=== PATIENT | male | born 1935 | race Caucasian/White ===

== ENCOUNTER 2017-02-22 19:01 | Inpatient (IN) | payer MEDICARE ==
[~2017-02-22] VITALS: Ht 154.9 cm; Wt 67.1 kg
[~2017-02-22 19:01] MED LIST: LEVE500T20 PO
[2017-02-22] MEDS ORDERED: DONE5TAB34 PO (19:11)
[2017-02-22] MEDS ORDERED: METO25TA6 PO (19:11)
[2017-02-22] MEDS ORDERED: CITA10TA9 PO (19:11)
[2017-02-22] MEDS ORDERED: FENO145T20 PO (19:11)
[2017-02-22] MEDS ORDERED: ASPI-991 PO (19:11)
[2017-02-22] MEDS ORDERED: FERR-58 PO (19:11)
[2017-02-22] MEDS ORDERED: LEVE250T2 PO (19:11)
[2017-02-22] MEDS ORDERED: PANT40TA4 PO (19:11)
[2017-02-22] MEDS ORDERED: LISI30TA4 PO (19:11)
[2017-02-22] MEDS ORDERED: ACET-868 PO (19:11)
[2017-02-22] MEDS ORDERED: EZET10TA PO (19:11)
[2017-02-22] MEDS ORDERED: LORA1TAB PO (19:11)
[2017-02-22 19:58] LABS: CALCIUM, SERUM 9.5 mg/dL (8.5-10.1); CARBON DIOXIDE 33 mmol/L (21-32); CHLORIDE 105 mmol/L (98-107); CREATININE 1.4 mg/dL (0.6-1.3); GLUCOSE 111 mg/dL (74-106); POTASSIUM 5.1 mmol/L (3.5-5.1); SODIUM SERUM 143 mmol/L (136-145); UREA NITROGEN, BLOOD 38 mg/dL (7-18)
[2017-02-22 20:03] LABS: ALANINE AMINOTRANSFERASE 22 U/L (12-78); ALBUMIN 3.8 g/dL (3.4-5.0); ALKALINE PHOSPHATASE 54 U/L (46-116); ASPARTATE AMINOTRANSFERASE 23 U/L (15-37); BILIRUBIN,DIRECT 0.1 mg/dL (0.0-0.2); BILIRUBIN,TOTAL 0.4 mg/dL (0.2-1.0); TOTAL PROTEIN, SERUM 7.5 g/dL (6.4-8.2)
[2017-02-22 20:05] LABS: APPEARANCE,URINE CLEAR (CLEAR); BILIRUBIN,URINE NEGATIVE (NEGATIVE); BLOOD, URINE NEGATIVE Ery/uL (NEGATIVE); COLOR,URINE YELLOW (YELLOW); KETONES,URINE NEGATIVE (NEGATIVE); LEUKOCYTE ESTERASE ,URINE NEGATIVE (NEGATIVE); NITRITE, URINE NEGATIVE (NEGATIVE); PROTEIN,URINE NEGATIVE (NEGATIVE); UGLUCOSE NEGATIVE (NEGATIVE); UROBILINOGEN,URINE 0.2 EU/dL (0.2)
[2017-02-22 20:09] LABS: BASOPHILS # (AUTO) 0.1 /CMM (0.0-0.2); EOSINOPHILS # (AUTO) 0.2 /CMM (0.0-0.7); EOSINOPHILS % (AUTO) 2.1 % (0.0-6.0); HEMATOCRIT 35 % (39-51); HEMOGLOBIN 11.8 g/dL (13.5-17.5); LYMPHOCYTES # (AUTO) 1.3 /CMM (0.8-4.8); LYMPHOCYTES % (AUTO) 11.8 % (20.0-44.0); MEAN CORPUSCULAR HEMOGLOBIN 32 PG (26.0-33.0); MEAN CORPUSCULAR HGB CONC 34 g/dl (31.0-36.0); MEAN CORPUSCULAR VOLUME 94 fL (80-96); MONOCYTES # (AUTO) 0.6 /CMM (0.1-1.30); MONOCYTES % (AUTO) 5.7 % (2.0-12.0); NEUTROPHILS # (AUTO) 8.8 /CMM (1.8-8.9); NEUTROPHILS % (AUTO) 79.4 % (43.0-81.0); PLATELET COUNT (AUTO) 289 /CMM (150-450); RDW COEFFICIENT OF VARIATION 14.2 (11.5-15.0); RED BLOOD CELL COUNT(AUTO) 3.72 MIL/uL (4.5-6.0); WHITE BLOOD COUNT (AUTO) 11.1 K/uL (4.3-11.0)
[2017-02-22 20:11] LABS: ACETAMINOPHEN 0 ug/ml (10-30); ALCOHOL, BLOOD < 3 mg/dL (0-0); SALICYLATE 1.2 mg/dL (2.8-20.0)
[2017-02-22] MEDS ORDERED: ACETAMINOPHEN 325 MG TABLET PO PRN ×2 (21:30)
[2017-02-22] MEDS ORDERED: LORAZEPAM 0.5 MG TABLET PO PRN (21:30)
[2017-02-22] MEDS ORDERED: MAG HYDROX/AL HYDROX/SIMETH 30 ML UDC PO PRN (21:30)
[2017-02-22] MEDS ORDERED: MAGNESIUM HYDROXIDE 30 ML UDC PO PRN (21:30)
[2017-02-22 22:00] VITALS: BP 112/70
[2017-02-23] MEDS ORDERED: Z GUARD REMEDY 2 OZ OINT TP PRN (05:00)
[2017-02-23 06:55] LABS: BASOPHILS # (AUTO) 0.1 /CMM (0.0-0.2); BASOPHILS % (AUTO) 1.1 % (0.0-2.0); EOSINOPHILS # (AUTO) 0.2 /CMM (0.0-0.7); EOSINOPHILS % (AUTO) 2.6 % (0.0-6.0); HEMATOCRIT 37 % (39-51); HEMOGLOBIN 12.3 g/dL (13.5-17.5); LYMPHOCYTES # (AUTO) 1.8 /CMM (0.8-4.8); LYMPHOCYTES % (AUTO) 19.3 % (20.0-44.0); MEAN CORPUSCULAR HEMOGLOBIN 31 PG (26.0-33.0); MEAN CORPUSCULAR HGB CONC 33 g/dl (31.0-36.0); MEAN CORPUSCULAR VOLUME 94 fL (80-96); MONOCYTES # (AUTO) 0.8 /CMM (0.1-1.30); MONOCYTES % (AUTO) 8.3 % (2.0-12.0); NEUTROPHILS # (AUTO) 6.5 /CMM (1.8-8.9); NEUTROPHILS % (AUTO) 68.7 % (43.0-81.0); PLATELET COUNT (AUTO) 272 /CMM (150-450); RDW COEFFICIENT OF VARIATION 14.4 (11.5-15.0); RED BLOOD CELL COUNT(AUTO) 3.91 MIL/uL (4.5-6.0); WHITE BLOOD COUNT (AUTO) 9.4 K/uL (4.3-11.0)
[2017-02-23 07:49] LABS: CHOLESTEROL 144 mg/dL (<200); HDL CHOLESTEROL 34 mg/dL (40-60); LDL 75 mg/dL (0-99); TRIGLYCERIDES 129 mg/dL (30-150)
[2017-02-23 08:17] LABS: ALANINE AMINOTRANSFERASE 24 U/L (12-78); ALKALINE PHOSPHATASE 51 U/L (46-116); ASPARTATE AMINOTRANSFERASE 27 U/L (15-37); BILIRUBIN,TOTAL 0.5 mg/dL (0.2-1.0); CALCIUM, SERUM 9.7 mg/dL (8.5-10.1); CARBON DIOXIDE 32 mmol/L (21-32); CHLORIDE 104 mmol/L (98-107); CREATININE 1.2 mg/dL (0.6-1.3); GLUCOSE 78 mg/dL (74-106); POTASSIUM 4.6 mmol/L (3.5-5.1); SODIUM SERUM 144 mmol/L (136-145); TOTAL PROTEIN, SERUM 7.7 g/dL (6.4-8.2); UREA NITROGEN, BLOOD 38 mg/dL (7-18)
[2017-02-23] MEDS: FENOFIBRATE NANOCRYS (145 MG) 145 MG TABLET PO SCH (08:53)
[2017-02-23] MEDS: METOPROLOL TARTRATE 25 MG TABLET PO SCH ×2 (08:54→16:50)
[2017-02-23] MEDS: PANTOPRAZOLE 40 MG TABLET.DR PO SCH (08:54)
[2017-02-23] MEDS: FERROUS SULFATE (325 MG) 325 MG/TAB TABLET PO SCH ×2 (08:54→16:49)
[2017-02-23] MEDS: ASPIRIN EC 81 MG TABLET.DR PO SCH (08:54)
[2017-02-23] MEDS: LISINOPRIL (10MG) 10 MG TABLET PO SCH (08:57)
[2017-02-23] MEDS: EZETIMIBE 10 MG TABLET PO SCH (08:59)
[2017-02-23 10:48] VITALS: BP 129/68
[2017-02-23] MEDS ORDERED: QUETIAPINE FUMARATE 25 MG TABLET PO PRN (13:00)
[2017-02-23] MEDS: SERTRALINE HCL 25 MG TABLET PO SCH (15:19)
[2017-02-23] MEDS: DIVALPROEX SODIUM 125 MG CAP.SPRINK PO SCH ×2 (15:19→21:30)
[2017-02-23 16:16] VITALS: BP 132/70
[2017-02-23 16:24] VITALS: BP 132/70
[2017-02-23] MEDS: LEVETIRACETAM (250 MG) 250 MG TABLET PO SCH (16:49)
[2017-02-23 20:00] VITALS: BP 151/77
[2017-02-23] MEDS: DONEPEZIL 5 MG TABLET PO SCH (21:30)
[2017-02-24 08:00] VITALS: BP 126/78
[2017-02-24] MEDS: ASPIRIN EC 81 MG TABLET.DR PO SCH (08:13)
[2017-02-24] MEDS: DIVALPROEX SODIUM 125 MG CAP.SPRINK PO SCH ×2 (08:13→21:01)
[2017-02-24] MEDS: PANTOPRAZOLE 40 MG TABLET.DR PO SCH (08:13)
[2017-02-24] MEDS: LEVETIRACETAM (250 MG) 250 MG TABLET PO SCH ×2 (08:14→17:06)
[2017-02-24] MEDS: FERROUS SULFATE (325 MG) 325 MG/TAB TABLET PO SCH ×2 (08:14→17:06)
[2017-02-24] MEDS: METOPROLOL TARTRATE 25 MG TABLET PO SCH ×2 (08:15→17:07)
[2017-02-24] MEDS: SERTRALINE HCL 25 MG TABLET PO SCH (08:15)
[2017-02-24] MEDS: FENOFIBRATE NANOCRYS (145 MG) 145 MG TABLET PO SCH (08:15)
[2017-02-24] MEDS: LISINOPRIL (10MG) 10 MG TABLET PO SCH (08:15)
[2017-02-24] MEDS: EZETIMIBE 10 MG TABLET PO SCH (08:16)
[2017-02-24 16:00] VITALS: BP 148/53
[2017-02-24] MEDS ORDERED: PERMETHRIN 5% CRM 60 GM TUBE TP ONE (19:30)
[2017-02-24] MEDS: DONEPEZIL 5 MG TABLET PO SCH (21:01)
[2017-02-24 22:31] VITALS: BP 142/65
[2017-02-25] MEDS: PANTOPRAZOLE 40 MG TABLET.DR PO SCH (07:48)
[2017-02-25 08:00] VITALS: BP 133/65
[2017-02-25] MEDS: DIVALPROEX SODIUM 125 MG CAP.SPRINK PO SCH ×2 (08:42→21:53)
[2017-02-25] MEDS: SERTRALINE HCL 25 MG TABLET PO SCH (08:42)
[2017-02-25] MEDS: FENOFIBRATE NANOCRYS (145 MG) 145 MG TABLET PO SCH (08:42)
[2017-02-25] MEDS: LEVETIRACETAM (250 MG) 250 MG TABLET PO SCH ×2 (08:42→16:57)
[2017-02-25] MEDS: ASPIRIN EC 81 MG TABLET.DR PO SCH (08:42)
[2017-02-25] MEDS: FERROUS SULFATE (325 MG) 325 MG/TAB TABLET PO SCH ×2 (08:42→16:56)
[2017-02-25] MEDS: METOPROLOL TARTRATE 25 MG TABLET PO SCH ×2 (08:43→16:57)
[2017-02-25] MEDS: LISINOPRIL (10MG) 10 MG TABLET PO SCH (08:43)
[2017-02-25] MEDS: EZETIMIBE 10 MG TABLET PO SCH (08:44)
[2017-02-25 16:00] VITALS: BP 95/55
[2017-02-25 20:00] VITALS: BP 100/57
[2017-02-25 21:20] VITALS: BP 100/57
[2017-02-25] MEDS: DONEPEZIL 5 MG TABLET PO SCH (21:54)
[2017-02-25] MEDS: TEMAZEPAM 7.5 MG CAPSULE PO PRN (21:54)
[2017-02-26 08:06] VITALS: BP 100/55
[2017-02-26] MEDS: PANTOPRAZOLE 40 MG TABLET.DR PO SCH (08:14)
[2017-02-26] MEDS: METOPROLOL TARTRATE 25 MG TABLET PO SCH ×2 (09:00→17:30)
[2017-02-26] MEDS: LISINOPRIL (10MG) 10 MG TABLET PO SCH (09:00)
[2017-02-26] MEDS: FENOFIBRATE NANOCRYS (145 MG) 145 MG TABLET PO SCH (09:17)
[2017-02-26] MEDS: LEVETIRACETAM (250 MG) 250 MG TABLET PO SCH ×2 (09:18→17:31)
[2017-02-26] MEDS: SERTRALINE HCL 25 MG TABLET PO SCH (09:18)
[2017-02-26] MEDS: ASPIRIN EC 81 MG TABLET.DR PO SCH (09:18)
[2017-02-26] MEDS: DIVALPROEX SODIUM 125 MG CAP.SPRINK PO SCH ×2 (09:18→20:31)
[2017-02-26] MEDS: FERROUS SULFATE (325 MG) 325 MG/TAB TABLET PO SCH ×2 (09:18→17:30)
[2017-02-26] MEDS: EZETIMIBE 10 MG TABLET PO SCH (09:19)
[2017-02-26 16:12] VITALS: BP 118/57
[2017-02-26 20:12] VITALS: BP 89/66
[2017-02-26] MEDS: DONEPEZIL 5 MG TABLET PO SCH (21:28)
[2017-02-26 22:00] VITALS: BP 101/53
[2017-02-27 08:00] VITALS: BP 119/64
[2017-02-27] MEDS: FENOFIBRATE NANOCRYS (145 MG) 145 MG TABLET PO SCH (08:22)
[2017-02-27] MEDS: PANTOPRAZOLE 40 MG TABLET.DR PO SCH (08:22)
[2017-02-27] MEDS: ASPIRIN EC 81 MG TABLET.DR PO SCH (08:22)
[2017-02-27] MEDS: FERROUS SULFATE (325 MG) 325 MG/TAB TABLET PO SCH ×2 (08:22→16:19)
[2017-02-27] MEDS: METOPROLOL TARTRATE 25 MG TABLET PO SCH ×2 (08:22→16:19)
[2017-02-27] MEDS: SERTRALINE HCL 25 MG TABLET PO SCH (08:22)
[2017-02-27] MEDS: DIVALPROEX SODIUM 125 MG CAP.SPRINK PO SCH ×2 (08:22→21:33)
[2017-02-27] MEDS: LISINOPRIL (10MG) 10 MG TABLET PO SCH (08:23)
[2017-02-27] MEDS: EZETIMIBE 10 MG TABLET PO SCH (08:23)
[2017-02-27] MEDS: LEVETIRACETAM (250 MG) 250 MG TABLET PO SCH ×2 (09:16→16:19)
[2017-02-27 16:00] VITALS: BP 105/56
[2017-02-27 20:00] VITALS: BP 118/54
[2017-02-27] MEDS: TEMAZEPAM 7.5 MG CAPSULE PO PRN (21:33)
[2017-02-27] MEDS: DONEPEZIL 5 MG TABLET PO SCH (21:33)
[2017-02-28 08:00] VITALS: BP 141/60
[2017-02-28] MEDS: DIVALPROEX SODIUM 125 MG CAP.SPRINK PO SCH (08:58)
[2017-02-28] MEDS: METOPROLOL TARTRATE 25 MG TABLET PO SCH ×2 (08:59→16:34)
[2017-02-28] MEDS: SERTRALINE HCL 25 MG TABLET PO SCH (08:59)
[2017-02-28] MEDS: FERROUS SULFATE (325 MG) 325 MG/TAB TABLET PO SCH ×2 (08:59→16:34)
[2017-02-28] MEDS: FENOFIBRATE NANOCRYS (145 MG) 145 MG TABLET PO SCH (08:59)
[2017-02-28] MEDS: LISINOPRIL (10MG) 10 MG TABLET PO SCH (08:59)
[2017-02-28] MEDS: LEVETIRACETAM (250 MG) 250 MG TABLET PO SCH ×2 (08:59→16:34)
[2017-02-28] MEDS: ASPIRIN EC 81 MG TABLET.DR PO SCH (09:00)
[2017-02-28] MEDS: PANTOPRAZOLE 40 MG TABLET.DR PO SCH (09:00)
[2017-02-28] MEDS: EZETIMIBE 10 MG TABLET PO SCH (09:08)
[2017-02-28 16:27] VITALS: BP 135/67
[2017-02-28 20:00] VITALS: BP 117/59
[2017-02-28] MEDS: TEMAZEPAM 7.5 MG CAPSULE PO PRN (21:04)
[2017-02-28] MEDS: DONEPEZIL 5 MG TABLET PO SCH (21:04)
[2017-03-01] MEDS: PANTOPRAZOLE 40 MG TABLET.DR PO SCH (07:37)
[2017-03-01 08:00] VITALS: BP 126/66
[2017-03-01] MEDS: SERTRALINE HCL 25 MG TABLET PO SCH (09:58)
[2017-03-01] MEDS: FERROUS SULFATE (325 MG) 325 MG/TAB TABLET PO SCH ×2 (09:58→16:39)
[2017-03-01] MEDS: FENOFIBRATE NANOCRYS (145 MG) 145 MG TABLET PO SCH (09:59)
[2017-03-01] MEDS: LISINOPRIL (10MG) 10 MG TABLET PO SCH (09:59)
[2017-03-01] MEDS: LEVETIRACETAM (250 MG) 250 MG TABLET PO SCH ×2 (09:59→16:39)
[2017-03-01] MEDS: EZETIMIBE 10 MG TABLET PO SCH (09:59)
[2017-03-01] MEDS: METOPROLOL TARTRATE 25 MG TABLET PO SCH ×2 (09:59→16:39)
[2017-03-01] MEDS: ASPIRIN EC 81 MG TABLET.DR PO SCH (10:00)
[2017-03-01] MEDS: Z GUARD REMEDY 2 OZ OINT TP SCH (10:00)
[2017-03-01 16:25] VITALS: BP 109/66
[2017-03-01 20:00] VITALS: BP 145/84
[2017-03-01] MEDS: TEMAZEPAM 7.5 MG CAPSULE PO PRN (21:46)
[2017-03-01] MEDS: DIVALPROEX SODIUM 125 MG CAP.SPRINK PO SCH (21:47)
[2017-03-01] MEDS: DONEPEZIL 5 MG TABLET PO SCH (21:47)
[2017-03-02] MEDS: ASPIRIN EC 81 MG TABLET.DR PO SCH (08:30)
[2017-03-02] MEDS: FERROUS SULFATE (325 MG) 325 MG/TAB TABLET PO SCH ×2 (08:30→16:25)
[2017-03-02] MEDS: PANTOPRAZOLE 40 MG TABLET.DR PO SCH (08:30)
[2017-03-02] MEDS: LEVETIRACETAM (250 MG) 250 MG TABLET PO SCH ×2 (08:31→16:25)
[2017-03-02] MEDS: SERTRALINE HCL 25 MG TABLET PO SCH (08:31)
[2017-03-02] MEDS: METOPROLOL TARTRATE 25 MG TABLET PO SCH ×2 (08:32→16:27)
[2017-03-02] MEDS: LISINOPRIL (10MG) 10 MG TABLET PO SCH (08:32)
[2017-03-02] MEDS: FENOFIBRATE NANOCRYS (145 MG) 145 MG TABLET PO SCH (08:32)
[2017-03-02] MEDS: EZETIMIBE 10 MG TABLET PO SCH (08:34)
[2017-03-02 09:16] VITALS: BP 119/74
[2017-03-02] MEDS: Z GUARD REMEDY 2 OZ OINT TP SCH (09:25)
[2017-03-02 16:23] VITALS: BP 113/55
[2017-03-02 16:25] VITALS: BP 106/58
[2017-03-02] MEDS ORDERED: PERMETHRIN 5% CRM 60 GM TUBE TP ONE (21:00)
[2017-03-02 21:07] VITALS: BP 123/41
[2017-03-02] MEDS: TEMAZEPAM 7.5 MG CAPSULE PO PRN (21:37)
[2017-03-02] MEDS: DONEPEZIL 5 MG TABLET PO SCH (21:37)
[2017-03-02] MEDS: DIVALPROEX SODIUM 125 MG CAP.SPRINK PO SCH (21:37)
[2017-03-03 08:00] VITALS: BP 131/71
[2017-03-03] MEDS: PANTOPRAZOLE 40 MG TABLET.DR PO SCH (09:09)
[2017-03-03] MEDS: FERROUS SULFATE (325 MG) 325 MG/TAB TABLET PO SCH (09:09)
[2017-03-03] MEDS: ASPIRIN EC 81 MG TABLET.DR PO SCH (09:10)
[2017-03-03] MEDS: METOPROLOL TARTRATE 25 MG TABLET PO SCH (09:10)
[2017-03-03] MEDS: LEVETIRACETAM (250 MG) 250 MG TABLET PO SCH (09:10)
[2017-03-03] MEDS: LISINOPRIL (10MG) 10 MG TABLET PO SCH (09:11)
[2017-03-03] MEDS: FENOFIBRATE NANOCRYS (145 MG) 145 MG TABLET PO SCH (09:11)
[2017-03-03] MEDS: SERTRALINE HCL 25 MG TABLET PO SCH (09:12)
[2017-03-03] MEDS: EZETIMIBE 10 MG TABLET PO SCH (09:12)
[2017-03-03] MEDS: Z GUARD REMEDY 2 OZ OINT TP SCH (09:12)
[2017-03-03 15:00] VITALS: BP 94/43
[2017-03-03 16:00] VITALS: BP 110/47
== END 2017-03-03 17:00 | DRG 885 ==
LOC: ER 19:09 → GPS 20:47
PROVIDERS: ADMIT Psychiatry & Neurology Psychosomatic Medicine; ATTEND Internal Medicine
DX: F33.3 Major depressive disorder, recurrent, severe with psychotic symptoms (principal); E78.5 Hyperlipidemia, unspecified; F41.9 Anxiety disorder, unspecified; I10 Essential (primary) hypertension; K21.9 Gastro-esophageal reflux disease without esophagitis; F29 Unspecified psychosis not due to a substance or known physiological condition; F03.90 Unspecified dementia, unspecified severity, without behavioral disturbance, psychotic disturbance, mood disturbance, and anxiety; Z79.899 Other long term (current) drug therapy; D63.8 Anemia in other chronic diseases classified elsewhere; Z73.6 Limitation of activities due to disability; D64.9 Anemia, unspecified; G40.909 Epilepsy, unspecified, not intractable, without status epilepticus; B86 Scabies
CPT/HCPCS: 36415; 80048-TC; 80053-TC; 80061-TC; 80076-TC; 80305; 81000-TC; 85025-TC; 87081-TC; 97001-TC; A4606; G0480; Z7610